=== PATIENT | male | born 1950 | race Asian ===

== ENCOUNTER 2018-10-31 15:31 | Emergency (ER) | payer OTHER ==
--- OUTSIDE RECORDS SUMMARY | 2018-10-31 15:33 | XMS REPORT | Clinical Summary ---
:1950 Author Organization [facility] Address [address] [place] [address] Care Team Providers Name Role Phone Angel Jarrell Primary Care Provider Allergies No Known Allergies Medications Medication Sig Dispensed Refills Start Date End Date Status atorvastatin (LIPITOR) Take 10 mg by 0 Active 10 MG tablet mouth every other day . zolpidem (AMBIEN) 10 mg Take 10 mg by 0 Active tablet mouth every night as needed. amLODIPine (NORVASC) 5 Take 5 mg by 0 Active MG tablet mouth 2 (two) times daily. Active Problems No known active problems Social History Tobacco Use Types Packs/Day Years Used Date Never Smoker Smokeless Tobacco: Never Used Alcohol Use Drinks/Week oz/Week Comments Yes Occas glass of wine or beer Sex Assigned at Date Recorded Not on file Job Start Date Occupation Industry Not on file Not on file Not on file Travel History Travel Start Travel End No recent travel history available. Last Filed Vital Signs Not on file Plan of Treatment Not on file Results Not on fileafter 10/30/2017 Insurance Payer Benefit Plan / Group Subscriber ID Type Phone Address MEDICARE MEDICARE A B xxxxxxxxxxx Medicare [employer] - [employer] CARE A[employer] INDEMNITY NON CONTR xxxxxxxxxx Comm Advance Directives Patient has advance care planning documents, and code status on file. For more information, please contact:[place] [id number] [place], [place] [phone] Code Status Date Activated Date Inactivated Comments Code ONE 09/29/2013 10:56 AM 09/29/2013 2:53 PM All possible means of support, including: cardiac massage, mechanical ventilation, and defibrillation will be used to support life.
--- OUTSIDE RECORDS SUMMARY | 2018-10-31 15:36 | XMS REPORT | Continuity of Care Document ---
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[place],[facility]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 not to exceed 400 mg/day, X 7 day, # 28 tab, 0 Refill(s) ocular lubricant 1 drp, BOTH Active 07/12[facility] solution EYES, TID, # 15 2017 Medical mL, 0 Refill(s) Center Levetiracetam 500 mg=1 tab, Active 07/12[facility] [place] 500 MG Oral PO, Q12H, Anti 2017 Medical Tablet [Keppra] seizure Center medication Take 1 tab twice a day, last dose will be PM dose on 07/15/16, this will complete a week course., # 7 tab, 0 Refill(s) Docusate Sodium 100 mg=1 cap, Active 07/12[facility] [place] 100 MG Oral PO, Q12H, # 14 2017 Medical Capsule cap, 0 Refill(s) [place] Vitamin D3 2000 2,000 IntlUnit=1 Active 07/12[facility] [place] intl units oral cap, PO, Daily, 2017 Medical tablet # 30 cap, 0 [place] Refill(s) Calcium 500 mg=1 tab, Active [place] Carbonate 500 MG PO, BID, # 60 2016 Medical Chewable Tablet tab, 0 Refill(s) Center Vitamin D3 2,000 IntlUnit, Inactive [place] 1 cap, Route: 2017 Medical PO, Drug form: Center CAP, Daily, Dosing Weight 70, kg, Start date: 07/12/16 9:00:00 M[employer], Duration: 30 day, Stop date: 08/10/16 9:00:00 CDTNotes: Same as: Vitamin D3 Calcium 500 mg, 1 tab, Inactive [place] Carbonate Route: PO, Drug 2016 Medical form: [place], Center BID, Dosing Weight 70, kg, Start date: 07/12/16 9:00:00 MILL CONTROLLER, Duration: 30 day, Stop date: 08/10/16 17:00:00 CDTNotes: (Same As: Jermaine) Calcium Carbonate 500 xr=997 mg elemental calcium Dose= mg calcium carbonate ( mg elemental calcium) Ketorolac 15 mg, 0.5 mL, Inactive [place] Route: IVP, Drug 2016 Medical form: INJ, ONCE, Center Dosing Weight 70, kg, Start date: 07/11/16 21:08:00 MILL CONTROLLER, Duration: 1 doses or times, Stop date: 07/11/16 21:08:00 CSTNotes: (Same as:Toradol) IV bolus must be given >15 seconds. Give IM administration slowly and deeply into the muscle. Not for use > 4 days MEDICATION WASTE Product Size: 30 mg Product Wasted: ___ mg Levetiracetam 500 mg, 1 tab, No Longer [place] 500 MG Oral Route: PO, Drug Active 2016 Medical Tablet [Keppra] form: TAB, Q12H, Center Dosing Weight 70, kg, Start date: 07/11/16 21:00:00 MILL CONTROLLER, Stop date: 07/15/16 21:00:00 CSTNotes: (Same as:Keppra) tamsulosin 0.8 mg, 2 cap, No Longer [place] Route: PO, Drug Active 2016 Medical form: CAP, After Center Breakfast, Dosing Weight 70, kg, Priority: NOW, Start date: 07/11/16 8:50:00 MILL CONTROLLER, Duration: 30 day, Stop date: 08/10/16 8:30:00 CDTNotes: (Same As: Flomax) "Do Not Crush" tramadol 50 mg, 1 tab, No Longer [place] hydrochloride 50 Route: PO, Drug Active 2016 Medical MG Oral Tablet form: TAB, Q6H, Center Dosing Weight 70, kg, PRN Pain Score 4-6, Start date: 07/11/16 7:27:00 MILL CONTROLLER, Duration: 30 day, Stop date: 08/10/16 7:26:00 CDTNotes: Not to exceed 400mg/day. (Same As: Ultram) Acetaminophen 650 mg, 2 tab, No Longer [place] Route: PO, Drug Active 2016 Medical form: TAB, Q6H, Center Dosing Weight 70, kg, PRN Pain 1-3/Temp > 100.4 F, Start date: 07/11/16 7:27:00 MILL CONTROLLER, Duration: 30 day, Stop date: 08/10/16 7:26:00 CDTNotes: Do not exceed 4 gm/day. (Same as: Tylenol) Sodium Chloride 1 spray, Route: No Longer [place] 0.111 MEQ/ML Each Affected 2016 Medical Nasal [place] Nostril, QID, Center [[place] brand of Drug form: SOLN, sodium chloride] Start date: 07/10/16 13:00:00 MILL CONTROLLER, Duration: 30 day, Stop date: 08/09/16 9:00:00 CDT Artificial Tears 1 drp, Route: No Longer [place] Each Affected Active 2016 Medical Eye, TID, Drug Center form: SOLN, Start date: 07/10/16 13:00:00 MILL CONTROLLER, Duration: 30 day, Stop date: 08/09/16 9:00:00 CDTNotes: (Same as: Aquasite) tamsulosin 0.4 mg, 1 cap, No Longer [place] Route: PO, Drug Active 2016 Medical form: CAP, After Center Breakfast, Dosing Weight 70, kg, Start date: 07/10/16 10:00:00 MILL CONTROLLER, Duration: 30 day, Stop date: 08/09/16 8:30:00 CDTNotes: (Same As: Flomax) "Do Not Crush" atorvastatin 10 10 mg=1 tab, PO, Active [place] MG Oral Tablet Daily, 0 2016 Medical [Lipitor] Refill(s) Center amLODIPine 5 mg 5 mg=1 tab, PO, Active [place] oral tablet BID, 0 Refill(s) [address] [facility] heparin sodium, 5,000 unit, 1 No Longer [place] porcine 2500 mL, Route: Active 2016 [facility] UNT/ML SUB-Q, Drug Center Injectable form: INJ, Q8H, Solution Dosing Weight 70, kg, Start date: 07/10/16 8:00:00 MILL CONTROLLER, Duration: 30 day, Stop date: 08/09/16 0:00:00 CDTNotes: porcine heparin Ceftriaxone 2 gm, Route: Inactive [place] IVPB, Drug form: 2016 [facility] PDR/INJ, Center [id number], Dosing Weight 63.636, kg, Priority: Routine, Start date: 07/09/16 12:00:00 MILL CONTROLLER, Duration: 30 day, Stop date: 08/08/16 0:00:00 CDTNotes: (Same As: Rocephin). Use with 100 mL NS and infuse over 30 min MEDICATION WASTE Product Size: 2000 mg Product Wasted: ___ mg Keppra 500 mg, Route: No Longer [place] IV, Q12H, Dosing Active 2016 Medical Weight 63.636, Center kg, Priority: Routine, Start date: 07/09/16 9:00:00 MILL CONTROLLER, Duration: 30 day, Stop date: 08/07/16 21:00:00 CDTNotes: Same as Keppra Mix with 100 mL NS, LR or D5W MEDICATION WASTE Product Size: 500 mg Product Wasted: ___ mg Saline Flush 10 ml, Route: No Longer [place] 0.9% IVP, Drug Form: Active 2016 Medical INJ, Dosing Center Weight 63.636, kg, Q12H, Start date: 07/09/16 9:00:00 MILL CONTROLLER, Duration: 30 day, Stop date: 08/07/16 21:00:00 CDTNotes: Same as: BD Posiflush Sterile Famotidine 20 mg, 2 mL, No Longer [place] Route: IVP, Drug Active 2016 Medical form: INJ, Q12H, Center Dosing Weight 63.636, kg, Start date: 07/09/16 9:00:00 MILL CONTROLLER, Duration: 30 day, Stop date: 08/07/16 21:00:00 CDTNotes: (Same as: Pepcid) Can be dilute in 5-10cc NS IVP: Slow IV push over at least 2 minutes. Docusate Sodium 100 mg, 1 cap, No Longer [place] 100 MG Oral Route: PO, Drug Active 2016 Medical Capsule form: CAP, Q12H, Center Dosing Weight 63.636, kg, Start date: 07/09/16 9:00:00 MILL CONTROLLER, Duration: 30 day, Stop date: 08/07/16 21:00:00 CDTNotes: (Same as: Colace) (Do Not Crush) sennosides, CUSTODIAL 8.6 mg, 1 tab, No Longer [place] Route: PO, Drug Active 2016 Medical Form: TAB, Center Dosing Weight 63.636, kg, Q12H, Start date: 07/09/16 9:00:00 MILL CONTROLLER, Duration: 30 day, Stop date: 08/07/16 21:00:00 CDTNotes: (Same as: Senokot) sodium phosphate 45 mmol, 15 mL, No Longer [place] + sodium Route: IVPB, Active 2016 Medical chloride 0.9% PRN, Dosing Center INJ 250 mL Weight 63.636, kg, PRN Abnormal Lab Result, Start date: 07/09/16 5:37:00 MILL CONTROLLER, Duration: 30 day, Stop date: 08/08/16 6:36:00 CDT, FOR ICU USE ONLY potassium 20 mEq, 15 mL, No Longer [place] chloride Route: [place], Drug Active 2016 Medical form: LIQ, PRN, Center Dosing Weight 63.636, kg, PRN Abnormal Lab Result, Start date: 07/09/16 5:37:00 MILL CONTROLLER, Duration: 30 day, Stop date: 08/08/16 6:36:00 CDT, FOR ICU USE ONLYNotes: (Same as: Potassium Chloride) potassium 2 pkt, Route: No Longer [place] phosphate-sodium PO, Drug Form: Active 2016 Medical phosphate 250 PDR/REC, Dosing Center mg-280 mg-160 mg Weight 63.636, oral powder for kg, PRN, PRN reconstitution Abnormal Lab Result, FOR ICU USE ONLY, Start date: 07/09/16 5:37:00 MILL CONTROLLER, Duration: 30 day, Stop date: 08/08/16 6:36:00 CDTNotes: (Same as: Phos-NaK) Each 1.5 gm pkt has 250mg phosphorous. Mix w/2.5oz water and stir. potassium 45 mmol, 15 mL, No Longer [place] phosphate + Route: IVPB, Active 2016 Medical sodium chloride PRN, Dosing Center 0.9% INJ 250 mL Weight 63.636, kg, PRN Abnormal Lab Result, Start date: 07/09/16 5:37:00 MILL CONTROLLER, Duration: 30 day, Stop date: 08/08/16 6:36:00 CDT, FOR ICU USE ONLYNotes: (Same as: K Phosphate.) 1 mMol phoshate has 1.47 mEq potassium Infuse over 4 hours Calcium 500 mg, 1 tab, No Longer [place] Carbonate 500 MG Route: PO, Drug Active 2016 Medical Chewable Tablet form: [place], Center PRN, Dosing Weight 63.636, kg, PRN Abnormal Lab Result, FOR ICU USE ONLY, Start date: 07/09/16 5:37:00 MILL CONTROLLER, Duration: 30 day, Stop date: 08/08/16 6:36:00 CDTNotes: (Same As: Tums) Calcium Carbonate 500 by=392 mg elemental calcium Dose= mg calcium carbonate ( mg elemental calcium) Calcium 1 gm, 10 mL, No Longer [place] Gluconate Route: IVPB, Active 2016 Medical PRN, Dosing Center Weight 63.636, kg, PRN Abnormal Lab Result, Start date: 07/09/16 5:37:00 MILL CONTROLLER, Duration: 30 day, Stop date: 08/08/16 6:36:00 CDT, FOR ICU USE ONLYNotes: WASTE: F/P - Sink; E - Municipal Trash Bin Magnesium Oxide 800 mg, 2 tab, No Longer [place] Route: PO, Drug Active 2016 Medical form: TAB, PRN, Center Dosing Weight 63.636, kg, PRN Abnormal Lab Result, FOR ICU USE ONLY, Start date: 07/09/16 5:37:00 MILL CONTROLLER, Duration: 30 day, Stop date: 08/08/16 6:36:00 CDTNotes: (Same as: Mag-Ox 400) Magnesium oxide [id number] elemental magnesium Dose=____mg magnesium oxide (___mg elemental magnesium) Magnesium 2 gm, 50 mL, No Longer [place] Sulfate Route: IVPB, Active 2016 Medical Drug form: INJ, Center PRN, Dosing Weight 63.636, kg, PRN Abnormal Lab Result, Start date: 07/09/16 5:37:00 MILL CONTROLLER, Duration: 30 day, Stop date: 08/08/16 6:36:00 CDT, FOR ICU USE ONLYNotes: WASTE: F/P - Sink; E - Municipal Trash Bin Insulin regular 4 unit, 0.04 mL, No Longer [place] Route: SUB-Q, Active 2016 Medical Drug form: SOLN, Center Sliding Scale, Dosing Weight 63.636, kg, PRN Blood Glucose Results, Start date: 07/09/16 5:37:00 MILL CONTROLLER, Duration: 30 day, Stop date: 08/08/16 6:36:00 CDTNotes: (Same as: Humulin R) Roll in palms of hands gently; Do not shake vigorously. "single patient use only" (Restricted to patients requiring a dose > 60 units) WASTE: F/P - Black; E - Municipal Trash Bin Stable for 28 days at room temperature Expires in days from Da te Dextrose 50% 25 gm, 50 mL, No Longer [place] Syringe Route: IVP, Drug Active 2016 Medical Form: INJ, Center Dosing Weight 63.636, kg, PRN, PRN Blood Glucose Results, Start date: 07/09/16 5:37:00 MILL CONTROLLER, Duration: 30 day, Stop date: 08/08/16 6:36:00 CDT Glucagon 1 mg, Route: IM, No Longer [place] Drug form: Active 2017 Medical PDR/INJ, PRN, Center Dosing Weight 63.636, kg, PRN Blood Glucose Results, Start date: 07/09/16 5:37:00 MILL CONTROLLER, Duration: 30 day, Stop date: 08/08/16 6:36:00 CDT Acetaminophen 650 mg, Route: Inactive [place]ita PO, Drug form: 2017 Medical TAB, Q6H, Dosing Center Weight 63.636, kg, PRN For Temp > 100.4 F, Start date: 07/09/16 5:35:00 MILL CONTROLLER, Duration: 30 day, Stop date: 08/08/16 5:34:00 CDT Hydralazine 20 mg, 1 mL, No Longer [place] Route: IVP, Drug Active 2016 Medical form: INJ, Q4H, Center Dosing Weight 63.636, kg, PRN Hypertension, SBP > 150 MM HG, Start date: 07/09/16 5:35:00 MILL CONTROLLER, Duration: 30 day, Stop date: 08/08/16 5:34:00 CDTNotes: (Same as: Apresoline) Push over 5 minutes Labetalol 20 mg, 4 mL, No Longer [place] Route: IVP, Drug Active 2016 Medical form: INJ, Center Q15Min, Dosing Weight 63.636, kg, PRN Hypertension, SBP > 150 MM HG, Start date: 07/09/16 5:35:00 MILL CONTROLLER, Duration: 3 doses or times, Stop date: Limited # of times Fentanyl 50 microgram, 1 Inactive [place]ita mL, Route: IV, 2016 Medical Drug form: INJ, Center ONCE, Dosing Weight 63.636, kg, Start date: 07/09/16 3:12:00 MILL CONTROLLER, Stop date: 07/09/16 3:12:00 CSTNotes: (Same as: Sublimaze) Preservative free. Fentanyl 50 microgram, Inactive [place] Route: IV, Drug 2016 Medical form: INJ, ONCE, Center Dosing Weight 63.636, kg, PRN Pain Score 7-10, Start date: 07/09/16 3:11:00 MILL CONTROLLER, Pediatric Dosing; For procedure; > 50 kg Insulin regular 8 unit, 0.08 mL, No Longer [place] Route: SUB-Q, Active 2016 Medical Drug form: SOLN, Center Sliding Scale, Dosing Weight 63.636, kg, PRN Blood Glucose Results, Start date: 07/09/16 0:03:00 MILL CONTROLLER, Duration: 30 day, Stop date: 08/08/16 1:02:00 CDTNotes: (Same as: Humulin R) Roll in palms of hands gently; Do not shake vigorously. "single patient use only" (Restricted to patients requiring a dose > 60 units) WASTE: F/P - Black; E - Municipal Trash Bin Stable for 28 days at room temperature Expires in days from Da te Saline Flush 10 ml, Route: No Longer [place]ita 0.9% IVP, Drug Form: Active 2016 Medical INJ, Dosing Center Weight 63.636, kg, PRN, PRN Line Flush, Start date: 07/09/16 0:03:00 MILL CONTROLLER, Duration: 30 day, Stop date: 08/08/16 1:02:00 CDTNotes: Same as: BD Posiflush Sterile Bisacodyl 10 mg, 1 supp, No Longer [place] Route: [place], Drug Active 2016 Medical form: SUPP, Center Daily, Dosing Weight 63.636, kg, PRN Constipation, Start date: 07/09/16 0:03:00 MILL CONTROLLER, Duration: 30 day, Stop date: 08/08/16 0:02:00 CDTNotes: (Same As: Dulcolax, [place]-Lax) Labetalol 10 mg, 2 mL, No Longer [facility] Route: IVP, Drug Active 2016 Medical form: INJ, Center Q15Min, Dosing Weight 63.636, kg, PRN Hypertension, Start date: 07/09/16 0:03:00 MILL CONTROLLER, Duration: 3 doses or times, Stop date: 08/06/16 0:00:00 CDT Ondansetron 4 mg, 2 mL, No Longer [place] Route: IVP, Drug Active 2016 Medical form: INJ, Q8H, Center Dosing Weight 63.636, kg, PRN Nausea & Vomiting, Start date: 07/09/16 0:03:00 MILL CONTROLLER, Duration: 30 day, Stop date: 08/08/16 0:02:00 CDTNotes: (Same as: John) MEDICATION WASTE Product Size: 4 mg Product Wasted: ___ mg Morphine 2 mg, 1 mL, No Longer [place] Route: IVP, Drug Active 2016 Medical form: INJ, Q1H, Center Dosing Weight 63.636, kg, PRN Pain Score 7-10, Start date: 07/09/16 0:03:00 MILL CONTROLLER, Duration: 30 day, Stop date: 08/08/16 1:02:00 CDTNotes: (Same as:MORPhine Sulfate) Nafcillin 2 gm, Route: IV, Inactive [place] Drug form: 2017 Medical PDR/INJ, ABXQ4H, Center Dosing Weight 63.636, kg, Start date: 07/09/16 0:00:00 MILL CONTROLLER, Duration: 30 day, Stop date: 08/07/16 21:30:00 CDT Acetaminophen 1 tab, Route: No Longer [place] 325 MG / PO, Drug Form: Active 2017 Medical Hydrocodone TAB, Dosing Center Bitartrate 10 MG Weight 63.636, Oral Tablet kg, Q6H, PRN [[place] 10/325] Pain Score 4-6, STAT, Start date: 07/08/16 23:59:00 MILL CONTROLLER, Duration: 30 day, Stop date: 08/07/16 23:58:00 CDTNotes: Do not exceed 4gm/day of acetaminophen. (Same as: [place] 325/10) Tylenol 650 mg, 2 tab, No Longer [place] Route: PO, Drug Active 2016 Medical form: TAB, Q6H, Center Dosing Weight 63.636, kg, PRN Pain 1-3/Temp > 100.4 F, Priority: STAT, Start date: 07/08/16 23:58:00 MILL CONTROLLER, Duration: 30 day, Stop date: 08/07/16 23:57:00 CDTNotes: Do not exceed 4 gm/day. (Same as: Tylenol) Rocephin 2 gm, Route: Inactive [facility] IVPB, Drug form: 2017 Medical PDR/INJ, ONCE, Center Dosing Weight 63.636, kg, Priority: STAT, Start date: 07/08/16 23:14:00 MILL CONTROLLER, Stop date: 07/08/16 23:14:00 MILL CONTROLLER sodium chloride 1,000 mL, Rate: No Longer [place] 0.9% 1000 ml INJ 75 ml/hr, Infuse Active 2017 Medical 1,000 mL over: 13.3 hr, Center Route: IV, Dosing Weight 63.636 kg, Total Volume: 1,000, Start date: 07/08/16 21:48:00 MILL CONTROLLER, Duration: 30 day, Stop date: 08/07/16 21:47:00 CDT Keppra 1,000 mg, Route: Inactive [place] IV, ONCE, Dosing 2017 Medical Weight 63.636, Center kg, Priority: STAT, Start date: 07/08/16 21:48:00 MILL CONTROLLER, Stop date: 07/08/16 21:48:00 MILL CONTROLLER Zofran 4 mg, Route: Inactive [facility] IVP, Drug form: 2017 Medical INJ, ONCE, Center Dosing Weight 63.636, kg, Priority: STAT, Start date: 07/08/16 21:43:00 MILL CONTROLLER, Stop date: 07/08/16 21:43:00 MILL CONTROLLER Morphine 4 mg, Route: Inactive [facility] IVP, Drug form: 2017 Medical INJ, ONCE, Center Dosing Weight 63.636, kg, Priority: STAT, Start date: 07/08/16 21:43:00 MILL CONTROLLER, Stop date: 07/08/16 21:43:00 MILL CONTROLLER Morphine 4 mg, 1 mL, Inactive [facility] Route: IVP, Drug 2017 Medical form: INJ, ONCE, Center Dosing Weight 63.636, kg, Priority: STAT, Start date: 07/08/16 20:55:00 MILL CONTROLLER, Stop date: 07/08/16 20:55:00 CSTNotes: (Same as:MORPhine Sulfate) Isolyte S PH-7.4 1,000 mL, Route: Inactive [facility] (Bolus) IV IV, Dosing 2017 Medical Weight 63.636, Center kg, ONCE, Start date: 07/08/16 20:55:00 MILL CONTROLLER, Stop date: 07/08/16 20:55:00 MILL CONTROLLER Allergies, Adverse Reactions, Alerts Substance Category Reaction Severity Reaction Status Date Comments Source type Reported Immunizations Immunization Date Given Site Status Last Updated Comments Source Results Order Name Results Value Reference Date Interpretation Comments Source Range Brain wo Brain wo EXAM: CT BRAIN WITHOUT CONTRAST 10/[address] CT DATE: 10/02/2016 12:11 PM CDT Read by: Fred Rosado MD Dictated Date/time: 10/02/16 13:37 Electronically Signed by: Fred Rosado MD 10/02/16 13:41 FINAL REPORT INDICATION: closed Cerebral contusion COMPARISON: CT brain from 07/09/2016 and 07/31/2016 TECHNIQUE: Noncontrast axial imaging of the brain was acquired from the vertex to the skull base. DLP: 1040.23mGy-cm FINDINGS: Decrease in edema and evolving encephalomalacia related to left frontal contusion. No acute hemorrhage or new parenchymal abnormality. No hydrocephalus , midline shift, or herniation. IMPRESSION: Continued evolution of the left inferior frontal contusion with decrease in edema. Brain wo Brain wo EXAM: CT HEAD WITHOUT CONTRAST 07/[address] CT DATE: 07/31/2016 12:05 PM MILL CONTROLLER Read by: Dawit Ellsworth MD Dictated Date/time: 07/31/16 13:28 Electronically Signed by: Dawit Ellsworth MD 07/31/16 13:47 FINAL REPORT INDICATION: 66 years old Male patient with history of S06.5X Traumatic subdural hemorrhage. TECHNIQUE: Multiple axial images were obtained through the head from vertex to the skull base. Axial bone algorithm reconstruction images are provided. COMPARISON: CT scan of the brain dated 07/09/2016 DISCUSSION: There has been interval complete evaluation of hemorrhagic products within the left frontal hemorrhagic parenchymal contusions with residual edematous changes within the left frontal white matter which appear more pronounced as compared to prior study. Interval complete resolution of previously identified small interhemispheric falx subdural hemorrhage. No definite new parenchymal abnormality or new hemorrhage is identified. There is no significant mass effect and midline shift. Overall ventricles are stable in size and configuration. Basal cisterns are grossly preserved. There is no evidence of downward herniation. No interval significant adverse changes in visualized paranasal sinuses, orbits, mastoid cavities and calvarium. IMPRESSION: 1. Overall no interval significant adverse change. 2. Interval complete resolution of hemorrhagic products within the previously identified left frontal hemorrhagic parenchymal contusion. Complete resolution of small subdural hemorrhage. CHEM PANEL eGFR 92 07/12 Result Comment: The eGFR is calculated using the CKD-EPI formula. In most young, healthy individuals the eGFR will be >90 mL/ min/1.73m2. The eGFR declines with age. An eGFR of 60-89 may be normal in [facility] mL/min/1.7 some populations, particularly the elderly, for whom the CKD-EPI formula has not been extensively validated. Use of the eGFR is not recommended in the following populations: [address] Individuals with unstable creatinine concentrations, including patients and those with serious co-morbid conditions. Patients with extremes in muscle mass or diet. The data above are obtained from the National Kidney Disease Education Program (NKDEP) which additionally recommends that when the eGFR is used in patients with extremes of body mass index for purposes of drug dosing, the eGFR should be multiplied by the estimated BMI. CHEM PANEL Calcium Lvl 8.9 mg/dL 8.5 - 10.5 07/12 [facility] [address] [place] [address] CHEM PANEL Creatinine 0.82 mg/dL 0.50 - 07/12 [facility] Lvl [address] [facility] CHEM PANEL Sodium Lvl 141 meq/L 135 - 145 07/[address] CHEM PANEL Glucose Lvl 104 mg/dL 70 - 99 07/[address] CHEM PANEL Chloride Lvl 105 meq/L 95 - 109 07/[address] CHEM PANEL Potassium Lvl 3.5 meq/L 3.5 - 5.1 07/[address] CHEM PANEL BUN 14 mg/dL 7 - 22 07/[address] CHEM PANEL CO2 25 meq/L 24 - 32 07/[address] CHEM PANEL AGAP 14.5 meq/L 10.0 - 07/12 [facility] [address] [facility] CHEM PANEL Magnesium Lvl 2.5 mg/dL 1.8 - 2.4 07/[address] CHEM PANEL Phosphorus 3.9 mg/dL 2.5 - 4.5 07/[address] HEMATOLOGY Eosinophils # 0.2 K/CMM 0.0 - 0.5 07/[address] [facility] HEMATOLOGY Segs-Bands # 3.3 K/CMM 1.5 - 8.1 07/[address] [facility] HEMATOLOGY Lymphocytes # 0.8 K/CMM 1.0 - 5.5 07/[address] [place] [address] HEMATOLOGY Basophils 0.8 % 0.0 - 1.0 07/[address] [facility] HEMATOLOGY Monocytes 13.2 % 2.0 - 12.0 07/[address] [facility] HEMATOLOGY Eosinophils 4.3 % 0.0 - 4.0 07/[address] [place] [address] HEMATOLOGY Lymphocytes 15.9 % 20.0 - 07/[address] [place] [address] [facility] HEMATOLOGY Segs 65.8 % 45.0 - 07/[address] [place] [address] [facility] HEMATOLOGY Monocytes # 0.7 K/CMM 0.0 - 0.8 07/[address] [place] [address] HEMATOLOGY Platelet 219 K/CMM 133 - 450 07/[address] [facility] HEMATOLOGY MPV 7.1 fL 7.4 - 10.4 07/[address] [place] [address] HEMATOLOGY Hct 36.1 % 42.0 - 07/[address] [place] [address] [facility] HEMATOLOGY MCV 85.9 fL 80.0 - 07/12 [facility] [address] [facility] HEMATOLOGY MCHC 32.6 g/dL 32.0 - 07/[address] [place] [address] [facility] HEMATOLOGY MCH 28.0 pg 27.0 - 07/[address] [facility] HEMATOLOGY RDW 14.5 % 11.5 - 07/[address] [place] [address] [facility] HEMATOLOGY Hgb 11.8 g/dL 14.0 - 07/[address] [place] [address] [facility] HEMATOLOGY RBC 4.20 M/CMM 4.70 - [address] [place] [address] [facility] HEMATOLOGY WBC 5.1 K/CMM 3.7 - 10.4 07/12 [facility] [address] [place] [address] PARATHYROID Ca Norm WB 1.10 1.05 - 07/12 [facility] PROFILE mMol/L [address]. [facility] PARATHYROID Ca Ion WB 1.08 1.05 - 07/12 [facility] PROFILE mMol/L [address]. [facility] CHEM PANEL Phosphorus 2.5 mg/dL 2.5 - 4.5 07/[address] CHEM PANEL Magnesium Lvl 2.4 mg/dL 1.8 - 2.4 07/10 [facility] [facility] ELECTROLYTE AGAP 13.9 meq/L 10.0 - 07/10 [facility] [address] [facility] ELECTROLYTE CO2 25 meq/L 24 - 32 07/[address] ELECTROLYTE Potassium Lvl 3.9 meq/L 3.5 - 5.1 07/10 [facility] ELECTROLYTE Chloride Lvl 104 meq/L 95 - 109 07/[address] ELECTROLYTE Sodium Lvl 139 meq/L 135 - 145 07/[address] ELECTROLYTE Calcium Lvl 7.9 mg/dL 8.5 - 10.5 07/[address] ELECTROLYTE eGFR 79 07/10 Result Comment: The eGFR is calculated using the CKD-EPI formula. In most young, healthy individuals the eGFR will be >90 mL/ min/1.73m2. The eGFR declines with age. An eGFR of 60-89 may be normal in [facility] mL/min/1.7 some populations, particularly the elderly, for whom the CKD-EPI formula has not been extensively validated. Use of the eGFR is not recommended in the following populations: [address] Individuals with unstable creatinine concentrations, including patients and those with serious co-morbid conditions. Patients with extremes in muscle mass or diet. The data above are obtained from the National Kidney Disease Education Program (NKDEP) which additionally recommends that when the eGFR is used in patients with extremes of body mass index for purposes of drug dosing, the eGFR should be multiplied by the estimated BMI. ELECTROLYTE Creatinine 0.99 mg/dL 0.50 - 07/10 [facility] Lvl 1.40 /[address] [facility] ELECTROLYTE Glucose Lvl 134 mg/dL 70 - 99 07/10 [facility] ELECTROLYTE BUN 14 mg/dL 7 - 22 07/[address] HEMATOLOGY RBC 3.92 M/CMM 4.70 - 02 [facility] [address] [facility] HEMATOLOGY WBC 7.4 K/CMM 3.7 - 10.4 07/[address] HEMATOLOGY MPV 7.2 fL 7.4 - 10.4 07/[address] [facility] HEMATOLOGY Platelet 168 K/CMM 133 - 450 07/[address] [facility] HEMATOLOGY Hct 33.7 % 42.0 - 07/[address] [facility] HEMATOLOGY Hgb 11.3 g/dL 14.0 - 07/[address] [facility] HEMATOLOGY MCV 86.0 fL 80.0 - 07/[address] [facility] HEMATOLOGY MCHC 33.7 g/dL 32.0 - 07/[address] [place] [address] [facility] HEMATOLOGY MCH 29.0 pg 27.0 - 07/[address] [facility] HEMATOLOGY RDW 14.7 % 11.5 - 07/10 [facility] [address] [facility] HEMATOLOGY Lymphocytes 8.9 % 20.0 - 07/[address] [place] [address] [facility] HEMATOLOGY Segs 78.1 % 45.0 - 07/10 [facility] [address] [facility] HEMATOLOGY Eosinophils 0.1 % 0.0 - 4.0 07/[address] [facility] HEMATOLOGY Monocytes 12.5 % 2.0 - 12.0 07/[address] [facility] HEMATOLOGY Segs-Bands # 5.8 K/CMM 1.5 - 8.1 07/[address] [facility] HEMATOLOGY Basophils 0.4 % 0.0 - 1.0 07/[address] [facility] HEMATOLOGY Lymphocytes # 0.7 K/CMM 1.0 - 5.5 07/[address] [facility] HEMATOLOGY Monocytes # 0.9 K/CMM 0.0 - 0.8 07/[address] [facility] PARATHYROID Ca Ion WB 1.08 1.05 - 07/10 [facility] PROFILE mMol/L . [facility] PARATHYROID Ca Norm WB 1.10 1. - 07/10 [facility] PROFILE mMol/L . [facility] CHEM PANEL eGFR 89 07/09 Result Comment: The eGFR is calculated using the CKD-EPI formula. In most young, healthy individuals the eGFR will be >90 mL/ min/1.73m2. The eGFR declines with age. An eGFR of 60-89 may be normal in [facility] mL/min/1. some populations, particularly the elderly, for whom the CKD-EPI formula has not been extensively validated. Use of the eGFR is not recommended in the following populations: [address] Individuals with unstable creatinine concentrations, including patients and those with serious co-morbid conditions. Patients with extremes in muscle mass or diet. The data above are obtained from the National Kidney Disease Education Program (NKDEP) which additionally recommends that when the eGFR is used in patients with extremes of body mass index for purposes of drug dosing, the eGFR should be multiplied by the estimated BMI. CHEM PANEL Calcium Lvl 8.0 mg/dL 8.5 - 10.5 07/[address] CHEM PANEL CO2 25 meq/L 24 - 32 07/[address] CHEM PANEL Chloride Lvl 106 meq/L 95 - 109 07/[address] CHEM PANEL AGAP 12.7 meq/L 10.0 - 07/09 [facility] [address] [facility] CHEM PANEL Potassium Lvl 3.7 meq/L 3.5 - 5.1 07/[address] CHEM PANEL Sodium Lvl 140 meq/L 135 - 145 07/[address] CHEM PANEL BUN 13 mg/dL 7 - 22 07/[address] CHEM PANEL Glucose Lvl 111 mg/dL 70 - 99 07/[address] CHEM PANEL Creatinine 0.89 mg/dL 0.50 - 07/09 [facility] Lvl [address] [facility] HEMATOLOGY Segs 68.1 % 45.0 - 07/09 [facility] [address] [facility] HEMATOLOGY Lymphocytes 10.9 % 20.0 - 07/09 [facility] [address] [facility] HEMATOLOGY Monocytes 19.0 % 2.0 - 12.0 07/[address] HEMATOLOGY Eosinophils 1.6 % 0.0 - 4.0 07/[address] HEMATOLOGY Segs-Bands # 4.3 K/CMM 1.5 - 8.1 07/[address] HEMATOLOGY Lymphocytes # 0.7 K/CMM 1.0 - 5.5 07/[address] HEMATOLOGY Basophils 0.4 % 0.0 - 1.0 07/[address] HEMATOLOGY Monocytes # 1.2 K/CMM 0.0 - 0.8 07/[address] HEMATOLOGY Eosinophils # 0.1 K/CMM 0.0 - 0.5 07/[address] [facility] HEMATOLOGY RDW 14.6 % 11.5 - 07/09 [facility] [address] [facility] HEMATOLOGY Platelet 166 K/CMM 133 - 450 07/[address] [facility] HEMATOLOGY MPV 7.4 fL 7.4 - 10.4 07/[address] [facility] HEMATOLOGY WBC 6.3 K/CMM 3.7 - 10.4 07/[address] [facility] HEMATOLOGY Hgb 11.8 g/dL 14.0 - 07/09 [facility] [address] [facility] HEMATOLOGY RBC 4.14 M/CMM 4.70 - 07/09 [facility] [address] [facility] HEMATOLOGY Hct 35.8 % 42.0 - 07/09 [facility] [address] [facility] HEMATOLOGY MCV 86.6 fL 80.0 - 07/09 [facility] [address] [facility] HEMATOLOGY MCH 28.5 pg 27.0 - 07/09 [facility] [address] [facility] HEMATOLOGY MCHC 32.9 g/dL 32.0 - 07/09 [facility] [address] [facility] PARATHYROID Ca Ion WB 0.99 .05 - 07/09 [facility] PROFILE mMol/L [address]. [facility] PARATHYROID Ca Norm WB 0.99 . - 07/09 [facility] PROFILE mMol/L [address]. [facility] URINE AND UA <=1.0 0.1 - 1.0 07/09 [facility] Urobilinogen mg/dL /[address] [facility] URINE AND UA Sq Epi None Seen 07/09 [facility] URINE AND UA Amorph Occasional None Seen 07/09 [facility] Ena /HPF /HPF /[address] [facility] URINE AND UA Mucus Few /LPF None Seen 07/09 [facility] STOOL /LPF /[address] [place] [id number] URINE AND UA Nitrite Negative Negative 07/09 [facility] (07/09/16 5:53 AM) [place] URINE AND UA Leuk Est Negative Negative 07/09 [facility] (07/09/16 5:53 AM) [place] URINE AND UA WBC null 0 - 5 07/09 [facility] URINE AND UA Bili Negative Negative 07/09 [facility] *NA* Center (07/09/16 5:53 AM) URINE AND UA Blood Negative Negative 07/09 [facility] (07/09/16 5:53 AM) [place] URINE AND UA Ketones Negative Negative 07/09 [facility] mg/dL mg/dL [facility] URINE AND UA Glucose Negative Negative 07/09 [facility] mg/dL mg/dL [facility] URINE AND UA Protein Negative Negative 07/09 [facility] mg/dL mg/dL [facility] URINE AND UA Spec Grav 1.016 <=1.030 07/09 [facility] URINE AND UA pH 6.5 5.0 - 8.0 07/09 [facility] URINE AND UA Turbidity Slight Clear 07/09 [facility] *ABN* [place] (07/09/16 5:53 AM) URINE AND UA Color Yellow Yellow 07/09 [facility] *NA* [place] (07/09/16 5:53 AM) Ankle 3 Ankle 3 views EXAM: XR LEFT ANKLE 3 VIEWS 07/09 - [place] views DX DX - Medical This report was dictated by a Therapy Director/Fellow. I have personally reviewed the images as Center well as the Resident's interpretation and agree with the findings. DATE: 07/09/2016 9:22 AM [employer] Read by: Nixon Churchillo Resident: Nixon Churchill (sam Dictated Date/time: 07/09/16 11:46 Electronically Signed by: Antony Romano MD 07/09/16 13:20 FINAL REPORT INDICATION: Fracture COMPARISON: None TECHNIQUE: AP, oblique and lateral radiographs of the ankle FINDINGS: No acute fracture or malalignment is identified. The ankle mortise is congruent. Small Achilles enthesophyte is noted. There is marked soft tissue swelling about the ankle greatest along the medial malleolus. Atherosclerotic calcification is seen about the mid to distal leg. IMPRESSION: Marked soft tissue swelling about the ankle, greatest medially , without acute bony abnormality identified. Hand 3 Hand 3 views EXAM: XR RIGHT HAND 3 VIEWS 07/09 - [place] views DX DX - Medical This report was dictated by a Therapy Director/Fellow. I have personally reviewed the images as Center well as the Resident's interpretation and agree with the findings. DATE: 07/09/2016 9:22 AM [employer] Read by: Nixon Churchill Resident: Nixon Churchillo Dictated Date/time: 07/09/16 11:39 Electronically Signed by: Antony Romano MD 07/09/16 13:20 FINAL REPORT INDICATION: Fracture COMPARISON: None TECHNIQUE: PA, lateral and oblique radiographs of the hand FINDINGS: No acute fracture or malalignment is identified. 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 Suggested soft tissue nodularity projecting over the dorsal aspect of the long finger PIP. Intravenous line projects over the hand. IMPRESSION: 1. No acute bony abnormality identified. 2. Moderate thumb IP arthrosis in addition to scattered mild arthrosis throughout the are of the hand IP joints. 3. Suggested soft tissue nodularity about the long finger PIP joint dorsally. Please correlate with physical exam. Brain wo Brain wo EXAM: CT BRAIN WITHOUT CONTRAST 07/09 - [facility] contrast CT contrast CT /2016 - [facility] This report was dictated by a Therapy Director/Fellow. I have personally reviewed the images as Center well as the Resident's interpretation and agree with the findings. DATE: 07/09/2016 4:30 AM [employer] Read by: Edward Ramírez MD Resident: Edward Ramírez MD Dictated Date/time: 07/09/16 08:28 Electronically Signed by: Nidia Duarte 07/10/16 20:39 FINAL REPORT INDICATION: Bleeding COMPARISON: Prior CT brains without contrast performed 07/08/2016 TECHNIQUE: Routine axial CT images of the brain were obtained . Reformatted images in the sagittal and coronal plane were included. IV contrast: None. DLP: 954 mGy-cm FINDINGS: Continued expected evolution of left frontal parenchymal hematoma with surrounding edema. There is subdural hemorrhage layering along the falx anteriorly and posteriorly and now extends to the left post erior convexity. Subarachnoid hemorrhage layering in the posterior aspect of the sylvian fissure bilaterally are also unchanged. No new areas of intra- axial or extra-axial hemorrhage are detected. There is no evidence of acute ischemic change, mass lesion or midline shift. There is maintained liriano-white differentiation. There is no hydrocephalus. Dense atherosclerotic disease involving the intracranial carotid and vertebral arteries. See report of facial CT for detailed description of frontal bone fractures with scalp hematoma and blood products seen within the paranasal sinuses. There is swelling of the left periorbital soft tissue s which is not significantly changed the prior exam. The globes are intact and there is no retrobulbar hematoma. IMPRESSION: Expected evolution of hemorrhagic contusions. The subdural hemorrhage now appears to layer in the posterior left convexity without increase in the volume of hematoma. Hand 3 Hand 3 views EXAM: XR LEFT WRIST 3 VIEWS 07/09 - [place] views DX DX /2016 - Medical EXAM: XR LEFT HAND 3 VIEWS This report was dictated by a Therapy Director/Fellow. I have personally reviewed the images as Center well as the Resident's interpretation and agree with the findings. 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 FINDINGS: Overlying splint limits evaluation of fine bony detail and soft tissues. Interval closed reduction and splint placement, with the lunate now in satisfactory alignment. No fracture seen. IMPRESSION: Satisfactory alignment of the carpal bones following closed reduction and cast placement. Wrist Wrist EXAM: XR LEFT WRIST 3 VIEWS 07/09 - [facility] complete DX complete DX - Medical EXAM: XR LEFT HAND 3 VIEWS This report was dictated by a Therapy Director/Fellow. I have personally reviewed the images as Center well as the Resident's interpretation and agree with the findings. 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 FINDINGS: Overlying splint limits evaluation of fine bony detail and soft tissues. Interval closed reduction and splint placement, with the lunate now in satisfactory alignment. No fracture seen. IMPRESSION: Satisfactory alignment of the carpal bones following closed reduction and cast placement. CHEM PANEL Lactic Acid 1.2 mmol/L 0.5 - 2.2 07/09 [facility] HEMATOLOGY Max Amplitude 71 mm 52 - 71 07/09 [facility] [facility] HEMATOLOGY Angle Rapid 81 degrees 64 - 80 07/[address] HEMATOLOGY K-time Rapid 0.8 min 0.6 - 2.3 07/[address] HEMATOLOGY G-value Rapid 12.0 K 5.0 - 11.6 07/09 [facility] d/nd [facility] HEMATOLOGY ACT (TEG) 97 s 86 - 118 07/[address] HEMATOLOGY R-time Rapid 0.5 min 0.4 - 0.7 07/[address] HEMATOLOGY [place] 0.4 min 07/09 [facility] [facility] HEMATOLOGY Estimated % 1.4 % 0.0 - 7.5 07/09 [facility] [place] [facility] [facility] Forearm 2 Forearm 2 EXAM: XR LEFT FOREARM 2 VIEWS 07/09 - [place] views DX views DX - Medical This report was dictated by a Therapy Director/Fellow. I have personally reviewed the images as Center well as the Resident's interpretation and agree with the findings. DATE: 07/09/2016 2:33 AM [employer] Read by: Tarun Monroe MD Resident: Tarun Monroe MD Dictated Date/time: 07/09/16 04:53 Electronically Signed by: Jeramie Hameed 07/09/16 04:58 FINAL REPORT INDICATION: Pain, Trauma COMPARISON: Hand and wrist radiographs from yesterday. TECHNIQUE: AP and lateral radiographs of the forearm FINDINGS: No acute fracture or malalignment of the left forearm. Volar dislocation of the lunate is seen. There is mild soft tissue swelling about the distal left forearm. No radiopaque foreign body. IMPRESSION: 1. Lunate dislocation. No acute fracture. 2. Mild soft tissue swelling about the wrist. Hand 3 Hand 3 views EXAM: XR LEFT HAND 3 VIEWS 07/09 - [place] views DX DX - Medical This report was dictated by a Therapy Director/Fellow. I have personally reviewed the images as Center well as the Resident's interpretation and agree with the findings. DATE: 07/09/2016 2:33 AM [employer] Read by: Tarun Monroe MD Resident: Tarun Monroe MD Dictated Date/time: 07/09/16 04:20 Electronically Signed by: Jeramie Hameed 07/09/16 04:56 FINAL REPORT INDICATION: Pain Post Trauma COMPARISON: Left hand radiograph 07/08/2016 at 0000 hours. TECHNIQUE: PA, lateral and oblique radiographs of the hand. FINDINGS: There is volar dislocation of the lunate. No acute fracture seen. Mild soft tissue swelling is present about the left wrist. No radiopaque foreign body. IMPRESSION: 1. Lunate dislocation. 2. No acute fracture. 3. Soft tissue swelling about the left wrist. Brain wo Brain wo CT HEAD WITHOUT CONTRAST 07/08 [facility] contrast CT contrast CT /2017 - [facility] DATE: 07/08/2016 at 10:30 PM. Read by: Gage Sexton MD Dictated Date/time: 07/09/16 03:13 Electronically Signed by: Gage Sexton MD 07/09/16 03:24 FINAL REPORT COMPARISON: Outside imaging from [facility] 07/08/2016 at 5: 55 PM. HISTORY: Bleeding. TECHNIQUE: Contiguous axial images of the brain were obtained without intravenous contrast administration. Sagittal and coronal reformatted images were also provided. DLP: 1047 mGy-cm. FINDINGS: There is more blood noted within the left frontal region which appears to be intraparenchymal consistent with blooming of left frontal hemorrhagic contusion. Nondisplaced, nondepressed left frontal bone fracture through both rivera of the frontal sinus is again noted. A very thin, 2.5 mm epidural hematoma is again noted. Subdural hemorrhage is again noted along the anterior falx and layering along the left posterior falx slightly progressed. A new subdural collection is noted over the left parietal convexity ( series 5b image 39, series 6b image 17, series 3b image 10) measuring up to 6 mm in thickness without significant mass effect. Small subarachnoid hemorrhage is noted within the left frontal region slightly progressed. New subarachnoid hemorrhage is noted within the right sylvian fissure. There are no acute infarcts The liriano-white interfaces are well defined. IMPRESSION: 1. Interval blooming of left frontal hemorrhagic contusion. 2. New, 6 mm in thickness left parietal convexity subdural hemorrhage without mass effect. 3. Slight progression of left parafalcine subdural hemorrhage. 4. New right sylvian fissure and left frontal subarachnoid hemorrhage. 5. Nondisplaced, nondepressed left frontal bone fracture again noted with tiny, 2.5 mm left frontal epidural hematoma. Resident preliminary report by Dr. Tarun Monroe: Minimally larger SAH involving inferior L frontal lobe ( now 24mm axial , previously 20mm) Stable SDH along falx No new infarct. Again seen is frac ture of L frontal bone involving L frontal sinus, with fluid in frontal, ethmoid and maxillary sinuses. No midline shift or hydrocephalus. Facial bone Facial bone EXAM: CT FACIAL BONES WITHOUT CONTRAST 07/08 - [facility] wo contrast wo contrast /2016 - Medical CT CT This report was dictated by a Therapy Director/Fellow. I have personally reviewed the images as Center well as the Resident's interpretation and agree with the findings. DATE: 07/08/2016 9:38 PM M[employer] Read by: Tarun Monroe MD Resident: Tarun Monroe MD Dictated Date/time: 07/08/16 23:55 Electronically Signed by: Jeramie Hameed 07/09/16 08:08 FINAL REPORT INDICATION: Pain Post Trauma COMPARISON: None TECHNIQUE: Volumetric CT acquisition of the facial bones without contrast. Axial, coronal and sagittal reconstructions. IV contrast: None. DLP: 150 mGy-cm FINDINGS: Bones: There is a sagittally oriented nondisplaced fracture of the anterior left frontal bone, which extends through the outer as well as in the tables of the left frontal sinus. Fracture extends medial ly into the left lamella of the cribriform plate. Laterally the fracture extends along the left orbital roof to the left orbital lateral wall, and exits through the lateral frontal calvarium. There is a lso likely posterior extension of the fracture into the left sphenoid sinus. Inferiorly, the fracture extends into the left medial orbital wall, and the left maxillary sinus medial, anterior as well as posterior rivera. Hairline nondisplaced fracture extends through the left inferior orbital rim. There is possible fracture extension into the left pterygoid plates. There is opacification of the bilateral maxillary, ethmoid and sphenoid, and left frontal sinuses, which appears to be related to hemorrhage as well as pre-existing sinus disease. Soft tissues: The globes are symmetric in CT appearance. There is no intraconal hematoma. Left frontal scalp and periorbital soft tissue swelling is present. IMPRESSION: 1. Nondisplaced fracture of the left frontal bone which involves the left frontal sinus outer as well as inner tables. 2. Nondisplaced fracture of the left lateral lamella of the cribriform plate. 3. Likely nondisplaced fracture of the left sphenoid sinus. 4. Nondisplaced fractures involving the left orbital roof, medial and lateral rivera, and inferior orbital rim. 5. Nondisplaced fractures of all rivera of the left maxillary sinus. 6. Possible nondisplaced fracture of the left pterygoid plates. 7. Opacification of the bilateral maxillary, ethmoid and sphenoid, and left frontal sinuses, which appears to be related to hemorrhage as well as pre- existing sinus disease. 8. Left frontal scalp and left periorbital soft tissue swelling. Wrist Wrist EXAM: XR LEFT WRIST 3 VIEWS 07/08 [facility] complete DX complete DX /2016 - Medical This report was dictated by a Therapy Director/Fellow. I have personally reviewed the images as Center well as the Resident's interpretation and agree with the findings. DATE: 07/08/2016 9:43 PM MILL [employer] Read by: Tarun Monroe MD Resident: Tarun Monroe MD Dictated Date/time: 07/09/16 01:31 Electronically Signed by: Fermin Jackson MD 07/09/16 02:37 FINAL REPORT INDICATION: Pain Post Trauma COMPARISON: None TECHNIQUE: PA, lateral and oblique radiographs of the wrist FINDINGS: No fracture, periosteal reaction, or erosions identified. Volar dislocation of the lunate bone present. Soft tissue swelling about the wrist noted. IMPRESSION: Lunate dislocation. No fractures identified. Soft tissue swelling about the left wrist. Spine-Outsi Spine-Outside EXAM: CT CERVICAL SPINE WITHOUT CONTRAST 2ND OPINION INTERPRETATION 07/08 [facility] de Consult Consult CT /2017 - Medical CT This report was dictated by a Therapy Director/Fellow. I have personally reviewed the images as Center well as the Resident's interpretation and agree with the findings. 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 COMPARISON: None TECHNIQUE: Volumetric CT acquisition of the cervical spine without contrast. Axial, sagittal and coronal reconstructions. Second opinion interpretation of CT cervical spine exam obtained at [facility] 07/08/2016 at 1755 hours FINDINGS: The spine is imaged from the skull base to the level of T1. Opacification of the sphenoid sinuses present likely with blood. Recommend correlation with CT facial bone exam. Bilateral apical pleural thickening and scarring present. Nonspecific effusion the right mastoid air cells noted. No spondylolisthesis present. Vertebral body heights are normal. No cervical spine fracture is identified. No prevertebral soft tissue edema or hematoma is observed. Mild spondylosis present at C4-C5, C5-C6, C6-C7. IMPRESSION: No cervical spine fracture is identified. Opacification of the sphenoid sinuses likely with blood. Recommend correlation with CT facial bone exam. Brain-Outsi Brain-Outside CT HEAD WITHOUT CONTRAST OUTSIDE CONSULT 07/08 - [facility] Consult Consult CT /2016 - [facility] DATE: 07/08/2016 at 5:55 PM. Read by: Gage Sexton MD Dictated Date/time: 07/09/16 03:24 Electronically Signed by: Gage Sexton MD 07/09/16 03:29 FINAL REPORT COMPARISON: None. HISTORY: Head trauma, fall. TECHNIQUE: Outside imaging from [facility] is submitted for interpretation. This study consists of axial images of the brain obtained without intravenous contrast administration. DLP: 949.12 mGy-cm. FINDINGS: There is a nondisplaced, nondepressed left frontal bone fracture with a small associated, approximately 2.5 mm left frontal epidural hematoma. Subdural hemorrhage is noted along the anterior falx measuring approximately 4 mm in thickness. Hemorrhagic contusion is noted within the inferior left frontal lobe. Small subarachnoid hemorrhage is noted within the left frontal sulci. There is mild age-related volume loss. Atherosclerotic calcification is noted within the rivera and bilateral cavernous internal carotid arteries. Sinus opacification is noted consistent with inflammatory sinus disease. IMPRESSION: 1. Nondisplaced, nondepressed left frontal bone fracture with small, 2.5 mm left frontal epidural hematoma. 2. Left frontal parafalcine subdural hemorrhage, 4 mm in thickness. 3. Small left frontal hemorrhagic contusions. 4. Small left frontal traumatic subarachnoid hemorrhage. 5. Inflammatory sinus disease. Concur with outside interpretation minor differences. Torso-Outsi Torso-Outside EXAM: CT CHEST WITH CONTRAST 07/08 - [facility] Consult Consult CT - Medical CT EXAM: CT ABDOMEN AND PELVIS WITH CONTRAST This report was dictated by a Therapy Director/Fellow. I have personally reviewed the images as Center well as the Resident's interpretation and agree with the findings. Read by: Tarnu Monroe MD Resident: Tarun Monroe MD Dictated Date/time: 07/09/16 02:09 DATE: 07/08/2016 9:45 PM [employer]ILL CONTR[employer]ER Electronically Signed by: Jeramie Hameed 07/09/16 08:12 FINAL REPORT INDICATION: Trauma outside study. COMPARISON: None. TECHNIQUE: Study was performed at [facility] on 07/08/2016 at 1755 hours. Volumetric acquisition of the chest and abdomen in the arterial phase, following which the abdomen and pelvis was scanned in the venous phase, after administration of intravenous contrast. No delayed im aging was performed. Axial, coronal and sagittal reformats. FINDINGS: Chest: No mediastinal hematoma or thoracic aortic injury. Three-vessel coronary artery disease is present. Biapical scarring is noted. Dependent subsegmental atelectasis is noted bilaterally No pulmonary contusions. No pleural fluid or pneumothorax. Abdomen: No acute traumatic abnormality seen in the liver, pancreas, spleen, adrenal glands, both kidneys, and bowel. The gallbladder is surgically absent. A subcentimeter hypodensity is present in the left matthew l upper pole, not fully characterized, but likely represents a cyst. Punctate nonobstructive calculus is present at the right superior pole collecting system (image 55 series 9). Atherosclerotic calcifi cations are seen in the aorta and branch vessels. No acute vascular injury identified. No free intraperitoneal fluid or free air seen. Spine/Bones: No acute fracture or malalignment of the thoracic and lumbar spine and bony pelvis. Multilevel osteophytes are seen throughout the spine. 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 IMPRESSION: 1. No acute traumatic abnormality in the chest, abdomen and pelvis. 2. Mild scarring in the bilateral lung apices. 3. Punctate nonobstructive calculus at the right renal upper pole. 4. Subcentimeter hypodensity in the left renal upper pole, not fully characterized, but likely represents a cyst. 5. Atherosclerosis and coronary artery disease. Vital Signs Vital Sign Value Date Comments Source Systolic (mm Hg) 145 07/12/2016 [facility] Diastolic (mm Hg) 78 07/12/2016 [facility] Temperature Oral (F) 97.0 F 07/12/2016 [facility] Heart Rate 85 07/12/2016 [facility] Respitory Rate 18 07/12/2016 [facility] Heart Rate 77 07/12/2016 [facility] Systolic (mm Hg) 138 07/12/2016 [facility] Diastolic (mm Hg) 73 07/12/2016 [facility] Respitory Rate 18 07/12/2016 [facility] Temperature Oral (F) 97.0 F 07/12/2016 [facility] Respitory Rate 18 07/12/2016 [facility] Systolic (mm Hg) 163 07/12/2016 [facility] Diastolic (mm Hg) 77 07/12/2016 [facility] Temperature Oral (F) 98.7 F 07/12/2016 [facility] Heart Rate 77 07/12/2016 [facility] Weight 70 07/09/2016 [facility] Weight 63.636 07/09/2016 [facility] BMI Calculated 21.97 07/09/2016 [facility] Height 170.18 cm 07/09/2016 [facility] Encounters Location Location Encounter Encounter Reason Attending ADM DC Status Source Details Type Number For Provider Date Date Visit [facility] Inpatient [id number] Jonathon 07/09 07/12 Dorita Vargas /2016 [facility] Outpatient [id number] TRAUMA 07/31 Active [facility] /2016 [facility] [id number] Fortunato 07/31 08/01 [facility] [id number] TRAUMA 10/02 Active [facility] Outpt Diag [id number] Fortunato 10/02 10/03 [facility] Procedures Procedure Code Date Perfomer Comments Source Cystoscopic [id number] [facility] removal of bladder [place] lesion Placement of stent [id number] [facility] in cardiac conduit [facility] Cystoscopic [id number] Dorita removal of bladder Medical lesion Center Placement of stent [id number] Dorita in cardiac conduit Medical [place]
--- OUTSIDE RECORDS SUMMARY | 2018-10-31 15:37 | XMS REPORT ---
:1950 Author Organization [facility] Address [address] [place] [address] Dr. Dela Cruz [address] [place] [id number] Care Team Providers Name Role Phone CHARITY LUGO Unavailable Unavailable Problems This patient has no known problems. Allergies, Adverse Reactions, Alerts This patient has no known allergies or adverse reactions. Medications This patient has no known medications. Results Test Description Test Time Test Comments Text Results Atomic Results Result Comments TISSUE EXAM 2016-12-17 13:23:00 Surgical Pathology Report Case: [id number] Authorizing Provider: Charity Lugo MD Collected: 12/16/2016 1137 Ordering Location: [facility] Endoscopy Received: 12/16/2016 1412 Services Pathologist: Emil Martinez MD Specimen: Polyp, Colon - Transverse, transverse colon polyps x2 removed w/ ines nicholasp TRANSVERSE COLON POLYP X 2, BIOPSY- TUBULAR ADENOMA- HYPERPLASTIC POLYP- NO HIGH-GRADE DYSPLASIA AND NO MALIGNANCY IDENTIFIED [id number] of colon polypTransverse colon polypThe specimen is received in formalin-filled container labeled with the patient's information and labeled "transverse colon polyp x 2" and consists of two ragged fragments of adan soft tissue measuring 0.3 and 0.5 cm, submitted A1. CG/pl Sections reveal a tubular adenoma with glands showing proliferation of adenomatous epithelium with nuclear stratification. A hyperplastic polyp is also seen with glands showing serrated appearance. The lamina propria has mildly increased chronic inflammation and two benign lymphoid aggregates. High-grade dysplasia and malignancy are not seen. BASIC METABOLIC PANEL 2016-12-16 11:55:00 Test Item Value Reference Range Comments SODIUM (BEAKER) (test 142 meq/L 136-145 pozq=943) POTASSIUM (BEAKER) (test 3.8 meq/L 3.5-5.1 texp=583) CHLORIDE (BEAKER) (test 108 meq/L 98-107 mvxd=795) CO2 (BEAKER) (test ifua=180) 25 meq/L 22-29 BLOOD UREA NITROGEN (BEAKER) 15 mg/dL 7-21 (test wdpo=802) CREATININE (BEAKER) (test 1.05 mg/dL 0.57-1.25 amqk=004) GLUCOSE RANDOM (BEAKER) 95 mg/dL 70-105 (test hytq=999) CALCIUM (BEAKER) (test 9.2 mg/dL 8.4-10.2 wkpg=135) EGFR (BEAKER) (test 71 mL/min/1.73 sq m ESTIMATED GFR IS NOT mjzz=6004) ACCURATE CREATININE CLEARANCE IN PREDICTING GLOMERULAR FILTRATION RATE. ESTIMATED GFR IS NOT APPLICABLE FOR DIALYSIS PATIENTS. POCT-HEMOGLOBIN [id number] 11:10:00 Test Item Value Reference Range Comments POC-HEMOGLOBIN METER 15.8 g/dL 13.0-16.[address] [facility] [address] (BEAKER) (test hbqw=1034) [facility] [id number]
--- NOTE | 2018-10-31 16:38 | RAD REPORT ---
EXAM DESCRIPTION: CT - Stone Protocol - 10/31/2018 4:06 pm CLINICAL HISTORY: Severe right flank pain COMPARISON: CT trauma study 2017 TECHNIQUE: Axial 5 mm thick images were obtained without oral or IV contrast. The aamzl-iz-nedz span s the entirety of the system partially obscuring uppermost abdomen and lung bases. All CT scans are performed using dose optimization technique as appropriate and may include automated exposure control or mA/KV adjustment according to patient size. FINDINGS: Ytpl-vb-hgvypqmj right-sided hydronephrosis secondary to a 5 millimeter distal right urete ral calculus. This is a few cm from the UVJ. No left-sided hydronephrosis. No other obstructing or no nobstructing calculi seen. No suspicious renal masses. Isodense masses and pyelonephritis are not exc luded on a stone protocol CT scan. No urinary bladder suspicious finding. No significant adrenal find ing. Imaged portions of the liver, spleen and pancreas show no suspicious findings on non-contrast imaging . Cholecystectomy clips are present. No biliary tree dilatation. No suspicious bowel findings. Appendix is normal. No hernia, mass or bulky lymphadenopathy noted. No free air, free fluid or inflammatory stranding. No significant bony abnormality. IMPRESSION: Mild to moderate right-sided hydronephrosis secondary to a 5 mm distal right ureter calc ulus. This is a few cm from the UVJ. Isodense masses and pyelonephritis are not excluded on stone protocol technique.
[2018-10-31] MEDS ORDERED: FENTANYL CITR 100 MCG/2 ML ONE (16:46)
[2018-10-31] MEDS ORDERED: NA CHLORIDE 0.9% 1,000 ML ONE ×2 (16:47→17:43)
[2018-10-31] MEDS ORDERED: KETOROLAC 30 MG/ML INJ ONE (16:47)
[2018-10-31 16:50] LABS: Absolute Lymphocytes (CBC) 0.9 K/uL (0.7-4.9); Absolute Monocytes 0.5 K/uL (0.1-1.3); Absolute Neutrophil 6.2 K/uL (1.8-8.0); Basophils % 0.7 % (0-1.3); Eosinophils % 0.9 % (0-4.4); Hematocrit 43.4 % (39.6-49.0); Lymphocytes % 11.8 % (15.3-44.8); MPV 7.4 fL (7.6-11.3); Monocytes % 6.2 % (3.3-12.3); RBC Red Blood Cell Count 4.86 M/uL (4.33-5.43)
[2018-10-31 17:09] LABS: ALT/SGPT 24 U/L (12-78); AST/SGOT 17 U/L (15-37); Albumin 3.8 g/dL (3.4-5.0); Alkaline Phosphatase 59 U/L (45-117); BUN Blood Urea Nitrogen 25 mg/dL (7-18); Bicarbonate 26 mmol/L (21-32); Bilirubin Direct < 0.1 mg/dL (0-0.2); Bilirubin Total 0.3 mg/dL (0.2-1.0); Glucose Level 174 mg/dL (74-106); Potassium 3.5 mmol/L (3.5-5.1); Protein, Total 7.5 g/dL (6.4-8.2); Sodium Level 147 mmol/L (136-145)
[2018-10-31 17:12] LABS: Urine Blood 2+ (NEG); Urine Glucose NEGATIVE (NEG); Urine Protein NEGATIVE (NEG); Urine Specific Gravity 1.015 (1.005-1.030)
[2018-10-31 17:16] LABS: Urine RBC 20-50 /HPF (NONE SEEN)
[2018-10-31 17:17] LABS: Urine Bacteria <20 /HPF (NONE SEEN); Urine Culture Reflex Order NOT NEEDED
--- NOTE | 2018-10-31 17:26 | EDPHYS ---
Physician Documentation [facility] Name: Tonny Kirkpatrick Age: 68 yrs Sex: Male : 1950 Arrival Date: 10/31/2018 Time: 15:32 Bed 5 Private MD: Angel Jarrell ED Physician Gurinder Arora HPI: 10/31 16:25 This 68 yrs old Male presents to ER via Wheelchair with complaints of Flank Pain. snw 16:25 The patient complains of pain in the low back area and right mid back. The pain does snw not radiate. Onset: The symptoms/episode began/occurred suddenly, this morning. Associated signs and symptoms: Pertinent positives: denies. Severity of pain: At its worst the pain was moderate severe. The patient has not experienced similar symptoms in the past. It is unknown whether or not the patient has recently seen a physician. sees Dr. Jarrell, hx of HTN, nasal polypectomy. Pt had six hour flight today. Historical: - Allergies: 15:40 No Known Allergies; hb - Home Meds: 15:40 amlodipine oral [Active]; Lipitor Oral [Active]; hb - PMHx: 15:40 High Cholesterol; Hypertension; hb - PSHx: 15:40 Cholecystectomy; hb - Immunization history:: Adult Immunizations up to date. - Social history:: Smoking status: Patient/guardian denies using tobacco. - Ebola Screening: : No symptoms or risks identified at this time. ROS: 16:25 Constitutional: Negative for fever, chills, and weight loss, Eyes: Negative for injury, snw pain, redness, and discharge, ENT: Negative for injury, pain, and discharge, Neck: Negative for injury, pain, and swelling, Cardiovascular: Negative for chest pain, palpitations, and edema, Respiratory: Negative for shortness of breath, cough, wheezing, and pleuritic chest pain, Abdomen/GI: Negative for abdominal pain, nausea, vomiting, diarrhea, and constipation, : Negative for injury, bleeding, discharge, and swelling, MS/Extremity: Negative for injury and deformity, Skin: Negative for injury, rash, and discoloration, Neuro: Negative for headache, weakness, numbness, tingling, and seizure. 16:25 Back: Positive for pain at rest, flank pain, on the right, constant with exacerbations. Exam: 16:25 Constitutional: This is a well developed, well nourished patient who is awake, alert, snw and in no acute distress. Head/Face: Normocephalic, atraumatic. Eyes: Pupils equal round and reactive to light, extra-ocular motions intact. Lids and lashes normal. Conjunctiva and sclera are non-icteric and not injected. Cornea within normal limits. Periorbital areas with no swelling, redness, or edema. ENT: Nares patent. No nasal discharge, no septal abnormalities noted. Tympanic membranes are normal and external auditory canals are clear. Oropharynx with no redness, swelling, or masses, exudates, or evidence of obstruction, uvula midline. Mucous membranes moist. Neck: Trachea midline, no thyromegaly or masses palpated, and no cervical lymphadenopathy. Supple, full range of motion without nuchal rigidity, or vertebral point tenderness. No Meningismus. Chest/axilla: Normal chest wall appearance and motion. Nontender with no deformity. No lesions are appreciated. Cardiovascular: Regular rate and rhythm with a normal S1 and S2. No gallops, murmurs, or rubs. Normal PMI, no JVD. No pulse deficits. Respiratory: Lungs have equal breath sounds bilaterally, clear to auscultation and percussion. No rales, rhonchi or wheezes noted. No increased work of breathing, no retractions or nasal flaring. Abdomen/GI: Soft, non-tender, with normal bowel sounds. No distension or tympany. No guarding or rebound. No evidence of tenderness throughout. Skin: Warm, dry with normal turgor. Normal color with no rashes, no lesions, and no evidence of cellulitis. MS/ Extremity: Pulses equal, no cyanosis. Neurovascular intact. Full, normal range of motion. Neuro: Awake and alert, GCS 15, oriented to person, place, time, and situation. Cranial nerves II-XII grossly intact. Motor strength 5/5 in all extremities. Sensory grossly intact. Cerebellar exam normal. Normal gait. 16:25 Back: pain, that is moderate, that is severe, of the low back area and right mid back. Vital Signs: 15:39 BP 144 / 65; Pulse 88; Resp 16; Temp 98.9; Pulse Ox 100% on R/A; Weight 63.5 kg; Height hb 5 ft. 7 in. (170.18 cm); Pain 10/10; 17:20 BP 136 / 74; Pulse 81; Resp 16; Pulse Ox 98% on R/A; la1 19:09 BP 114 / 74; Pulse 84; Resp 16; Pulse Ox 98% on R/A; la1 15:39 Body Mass Index 21.93 (63.50 kg, 170.18 cm) hb MDM: 15:57 Patient medically screened. snw 17:29 Data reviewed: vital signs, nurses notes. Data interpreted: Pulse oximetry: on room air snw is 100 %. Interpretation: normal. Counseling: I had a detailed discussion with the patient and/or guardian regarding: the historical points, exam findings, and any diagnostic results supporting the discharge/admit diagnosis, the presence of at least one elevated blood pressure reading (>120/80) during this emergency department visit, lab results, radiology results, the need for outpatient follow up, for definitive care, to return to the emergency department if symptoms worsen or persist or if there are any questions or concerns that arise at home. Response to treatment: the patient's symptoms have markedly improved after treatment. Special discussion: Based on the patient's Hx, exam, and Dx evaluation, there is no indication for emergent surgery or inpatient Tx. It is understood by the patient/guardian that if the Sx's persist or worsen they need to return immediately for re-evaluation. Based on the history and exam findings, there is no indication for further emergent testing or inpatient evaluation. I discussed with the patient/guardian the need to see the primary care provider for further evaluation of the symptoms. I discussed with the patient/guardian the need to see the urologist for further evaluation of the symptoms. 10/31 15:56 Order name: Urine Microscopic Only; Complete Time: 17:23 snw 10/31 16:25 Order name: Basic Metabolic Panel; Complete Time: 17:10 snw 10/31 16:25 Order name: CBC with Diff; Complete Time: 17:56 snw 10/31 16:25 Order name: Creatinine for Radiology; Complete Time: 17:08 snw 10/31 16:25 Order name: Hepatic Function; Complete Time: 17:10 snw 10/31 16:44 Order name: Urine Dipstick--Ancillary (enter results); Complete Time: 17:13 ag 10/31 15:45 Order name: CT Stone Protocol; Complete Time: 17:08 snw 10/31 15:56 Order name: Urine Dipstick-Ancillary (obtain specimen); Complete Time: 16:34 snw 10/31 16:25 Order name: Labs collected and sent; Complete Time: 16:27 snw Administered Medications: 16:39 Drug: TORadol - Ketorolac 15 mg Route: IVP; Site: right antecubital; la1 17:26 Follow up: Response: No adverse reaction la1 16:40 Drug: NS 0.9% 1000 ml Route: IV; Rate: 1 bolus; Site: right antecubital; la1 17:36 Follow up: IV Status: Completed infusion la1 16:40 Drug: fentaNYL (PF) 25 mcg Route: IVP; Site: right antecubital; la1 17:26 Follow up: Response: No adverse reaction; Pain is decreased la1 17:35 Drug: NS 0.9% 1000 ml Route: IV; Rate: 1 bolus; Site: right forearm; la1 19:09 Follow up: IV Status: Completed infusion la1 17:35 Drug: Flomax 0.4 mg Route: PO; la1 17:36 Follow up: Response: No adverse reaction la1 17:36 Drug: fentaNYL (PF) 25 mcg Route: IVP; Site: right forearm; la1 17:36 Follow up: Response: No adverse reaction; Pain is decreased la1 Disposition: 10/31/18 17:26 Discharged to Home. Impression: Hydronephrosis with renal and ureteral calculous obstruction. - Condition is Stable. - Discharge Instructions: Kidney Stones, Hydronephrosis, Dietary Guidelines to Help Prevent Kidney Stones, Rehydration, Adult. - Prescriptions for Flomax 0.4 mg Oral Capsule, Sust. Release 24 hr - take 1 capsule by ORAL route once daily 1/2 hour following the same meal each day; 30 capsule. Diclofenac Sodium 75 mg Oral Tablet Sustained Release - take 1 tablet by ORAL route 2 times per day; 30 tablet. promethazine 25 mg Oral Tablet - take 1 tablet by ORAL route every 6 hours As needed; 20 tablet. - Medication Reconciliation Form, Thank You Letter, Antibiotic Education, Prescription Opioid Use form. - Follow up: Angel Jarrell MD; When: 2 - 3 days; Reason: Recheck today's complaints, Continuance of care, Re-evaluation by your physician. Follow up: Emergency Department; When: As needed; Reason: Worsening of condition. Addendum: 11/02/2018 19:03 Co-signature as Attending Physician, Gurinder Arora MD. r n Signatures: Dispatcher [employer] EDMS Maddie Brown, SENIOR QUALITY METHODS SPECIALIST-C SENIOR QUALITY METHODS SPECIALIST-Csnw Gurinder Arora MD MD rn Salazar Barrera RN RN la1 Lucy Billingsley RN RN Corrections: (The following items were deleted from the chart) 10/31 19:39 17:26 10/31/2018 17:26 Discharged to Home. Impression: Hydronephrosis with renal and la1 ureteral calculous obstruction. Condition is Stable. Forms are Medication Reconciliation Form, Thank You Letter, Antibiotic Education, Prescription Opioid Use. Follow up: Angel Jarrell; When: 2 - 3 days; Reason: Recheck today's complaints, Continuance of care, Re-evaluation by your physician. Follow up: Emergency Department; When: As needed; Reason: Worsening of condition. snw
--- NOTE | 2018-10-31 17:26 | ER ---
Nurse's Notes [facility] Name: Tonny Kirkpatrick Age: 68 yrs Sex: Male : 1950 Arrival Date: 10/31/2018 Time: 15:32 Bed 5 Private MD: Angel Jarrell Diagnosis: Hydronephrosis with renal and ureteral calculous obstruction Presentation: 10/31 15:37 Presenting complaint: Patient states: Right flank pain x 1 hr. Transition of care: hb patient was not received from another setting of care. Onset of symptoms was October 31, 2018. Risk Assessment: Do you want to hurt yourself or someone else? Patient reports no desire to harm self or others. Care prior to arrival: None. 15:37 Method Of Arrival: Wheelchair hb 15:37 Acuity: UVALDO 3 hb 16:39 Initial Sepsis Screen: Does the patient meet any 2 criteria? No. Patient's initial la1 sepsis screen is negative. Does the patient have a suspected source of infection? No. Patient's initial sepsis screen is negative. Historical: - Allergies: 15:40 No Known Allergies; hb - Home Meds: 15:40 amlodipine oral [Active]; Lipitor Oral [Active]; hb - PMHx: 15:40 High Cholesterol; Hypertension; hb - PSHx: 15:40 Cholecystectomy; hb - Immunization history:: Adult Immunizations up to date. - Social history:: Smoking status: Patient/guardian denies using tobacco. - Ebola Screening: : No symptoms or risks identified at this time. Screenin:39 Abuse screen: Denies threats or abuse. Nutritional screening: No deficits noted. la1 Tuberculosis screening: No symptoms or risk factors identified. Fall Risk None identified. Assessment: 16:39 General: Appears in no apparent distress. Behavior is calm, cooperative. Pain: la1 Complains of pain in right mid back and low back area. Neuro: Level of Consciousness is awake, alert, obeys commands, Oriented to person, place, time, situation. Cardiovascular: Capillary refill < 3 seconds Patient's skin is warm and dry. Respiratory: Airway is patent Respiratory effort is even, unlabored, Respiratory pattern is regular, symmetrical, Breath sounds are clear bilaterally. GI: No signs and/or symptoms were reported involving the gastrointestinal system. : No signs and/or symptoms were reported regarding the genitourinary system. 18:00 Reassessment: Patient appears in no apparent distress at this time. No changes from la1 previously documented assessment. Patient and/or family updated on plan of care and expected duration. Pain level reassessed. Patient is alert, oriented x 3, equal unlabored respirations, skin warm/dry/pink. 19:08 Reassessment: Patient appears in no apparent distress at this time. No changes from la1 previously documented assessment. Patient and/or family updated on plan of care and expected duration. Pain level reassessed. Patient is alert, oriented x 3, equal unlabored respirations, skin warm/dry/pink. 19:14 Reassessment: Awaiting to pick patient up. la1 Vital Signs: 15:39 BP 144 / 65; Pulse 88; Resp 16; Temp 98.9; Pulse Ox 100% on R/A; Weight 63.5 kg; Height hb 5 ft. 7 in. (170.18 cm); Pain 10/10; 17:20 BP 136 / 74; Pulse 81; Resp 16; Pulse Ox 98% on R/A; la1 19:09 BP 114 / 74; Pulse 84; Resp 16; Pulse Ox 98% on R/A; la1 15:39 Body Mass Index 21.93 (63.50 kg, 170.18 cm) hb ED Course: 15:32 Patient arrived in ED. mr 15:32 Angel Jarrell MD is Private Physician. mr 15:39 Triage completed. hb 15:40 Arm band placed on. hb 15:56 [facility] snw 15:56 Gurinder Arora MD is Attending Physician. snw 16:05 Salazar Barrera, MILES is Primary Nurse. la1 16:06 CT completed. Patient tolerated procedure well. Patient moved back from CT. mw3 16:07 CT Stone Protocol In Process Unspecified. EDMS 16:38 No provider procedures requiring assistance completed. Inserted saline lock: 22 gauge la1 in right forearm, using aseptic technique. Blood collected. 16:39 Call light in reach. Side rails up X 1. la1 17:24 Angel Jarrell MD is Referral Physician. snw 19:08 IV discontinued, intact, bleeding controlled, No redness/swelling at site. Pressure la1 dressing applied. Administered Medications: 16:39 Drug: TORadol - Ketorolac 15 mg Route: IVP; Site: right antecubital; la1 17:26 Follow up: Response: No adverse reaction la1 16:40 Drug: NS 0.9% 1000 ml Route: IV; Rate: 1 bolus; Site: right antecubital; la1 17:36 Follow up: IV Status: Completed infusion la1 16:40 Drug: fentaNYL (PF) 25 mcg Route: IVP; Site: right antecubital; la1 17:26 Follow up: Response: No adverse reaction; Pain is decreased la1 17:35 Drug: NS 0.9% 1000 ml Route: IV; Rate: 1 bolus; Site: right forearm; la1 19:09 Follow up: IV Status: Completed infusion la1 17:35 Drug: Flomax 0.4 mg Route: PO; la1 17:36 Follow up: Response: No adverse reaction la1 17:36 Drug: fentaNYL (PF) 25 mcg Route: IVP; Site: right forearm; la1 17:36 Follow up: Response: No adverse reaction; Pain is decreased la1 Outcome: 17:26 Discharge ordered by MD. mueller 19:08 Discharged to home ambulatory. la1 19:08 Condition: improved 19:08 Discharge instructions given to patient, Instructed on discharge instructions, follow up and referral plans. medication usage, Demonstrated understanding of instructions, follow-up care, medications, Prescriptions given X 3. 19:39 Patient left the ED. la1 Signatures: Dispatcher [employer] EDMS Maddie Brown, [employer]-Rachna GoldmanaGina Lee RN RN la1 Lucy Billingsley RN RN hb Willis, Michelle mw3
[2018-10-31] MEDS ORDERED: TAMSULOSIN 0.4 MG SR CAP ONE (17:43)
== END 2018-10-31 19:39 | disposition home or self-care (01) ==
LOC: ER 15:31
DX: N13.2 Hydronephrosis with renal and ureteral calculous obstruction (principal); I10 Essential (primary) hypertension; E78.00 Pure hypercholesterolemia, unspecified
CPT/HCPCS: 85025; 80048; 36415; 80076; 76377; 74176; 99284; J3010; J7030 ×2; 81003; 81015